=== PATIENT | female | born 1955 | race Caucasian/White ===

== ENCOUNTER → 2021-09-07 | Day surgery (SDC) | payer OTHER ==
[~2021-09-07] VITALS: Ht 172.7 cm; Wt 131.5 kg
[~2021-09-07] MED LIST: ACETAMINOPHEN500 M1 PO; ALLOPURINOL300 MG PO; BENICAR40 MG PO; COLACE100 MG PO; DYAZIDE PO; EFFEXOR XR150 MG PO; EFFEXOR-XR 75 M75 MG PO; K-TAB ER20 MEQ PO; LASIX20 MG PO; MOTRIN600 MG PO; OXY-IR 5MG5 MG PO; PERCOCET 5-3251 EACH PO; PLAVIX75 MG PO; PROTONIX 40MG T40 MG PO; SENNA S TABLET1 EACH PO; SYNTHROID200 MCG PO; VALSARTAN160 MG PO; VITAMIN D50000 UNIT PO; WELLBUTRIN SR100 MG PO; WELLBUTRIN XL150 MG PO; ZETIA10 M1 PO; ZOFRAN4 MG PO; [UNRECOGNIZED DRUG - OTHER] PO
[2021-09-07 10:20] LABS: BUN/CREAT RATIO (CALC) 24.1 RATIO; CREATININE 0.87 mg/dL (0.51-0.95); POTASSIUM 4.1 mmol/L (3.5-5.1)
--- NOTE | 2021-09-07 12:39 | NUR ---
VO DR PITTS RESUME PLAVIX ON Tuesday09/09/21
== END | disposition home or self-care (01) ==
LOC: FAS 09:27
PROVIDERS: Anesthesiology
DX: K43.6 Other and unspecified ventral hernia with obstruction, without gangrene (principal); I10 Essential (primary) hypertension; E03.9 Hypothyroidism, unspecified; E66.01 Morbid (severe) obesity due to excess calories; Z79.02 Long term (current) use of antithrombotics/antiplatelets; Z96.659 Presence of unspecified artificial knee joint; Z98.51 Tubal ligation status; Z87.891 Personal history of nicotine dependence; Z68.42 Body mass index [BMI] 45.0-49.9, adult; E78.5 Hyperlipidemia, unspecified
CPT/HCPCS: 36415; 80048; C1781; J0690; J1170; J1644; J2250; J2370; J2405; J2704; J2710; J3010; J7120

== ENCOUNTER 2021-11-03 14:21 | Emergency (ER) | payer OTHER ==
[2021-11-03 16:39] LABS: BASOPHIL 0.1 % (0-2); EOSINOPHIL 0 % (0-7); HCT 41.7 % (37.0-47.0); HGB 13.7 g/dl (12.5-16.0); MCH 30.4 pg (25.0-31.0); MCHC 32.9 g/dL (32.0-36.0); MCV 92.7 fL (78.0-100.0); MONOCYTE 5.3 % (0-12); MPV 11.7 fL (6.0-9.5); NEUTROPHIL 87.1 % (41-80); NRBC 0; PLT 175 K/uL (150-400); RDW 14.6 % (11.5-14.0); WBC 9.2 K/uL (4.0-10.5)
[2021-11-03 16:45] LABS: INR 1.03 (0.9-1.2); PROTHROMBIN TIME 12.9 SECONDS (11.8-13.4); PTT 36.4 SECONDS (24.4-34.7)
[2021-11-03 16:46] LABS: D-DIMER 0.49 ug/mLFEU (0.00-0.41)
[2021-11-03 16:56] LABS: IRON % SATURATION 6.1 %SAT (20-50)
[2021-11-03 17:16] LABS: LACTIC ACID 1.3 mmol/L (0.4-1.9)
[2021-11-03 17:24] LABS: ALBUMIN 3.5 g/dL (3.4-5.0); BILIRUBIN - TOTAL 0.3 mg/dL (0.2-1.0); BUN/CREAT RATIO (CALC) 18.1 RATIO; C-REACTIVE PROTEIN 16.5 mg/dL (<=0.90); CREATININE 1.93 mg/dL (0.51-0.95); GLOBULIN (CALCULATION) 4.1 g/dL; MAGNESIUM 2.3 mg/dL (1.8-2.4); POTASSIUM 4.4 mmol/L (3.5-5.1); TOTAL PROTEIN 7.6 g/dL (6.4-8.2)
[2021-11-03] MEDS ORDERED: G TUSSIN AC LI118 ML PO (21:18)
== END 2021-11-03 21:40 | disposition home or self-care (01) ==
LOC: FER 14:21
PROVIDERS: Emergency Medicine
DX: U07.1 COVID-19 (principal); J12.82 Pneumonia due to coronavirus disease 2019; N17.9 Acute kidney failure, unspecified; I10 Essential (primary) hypertension; Z23 Encounter for immunization
CPT/HCPCS: 36415; 36600; 71250; 80053; 82728; 82803; 83540; 83550; 83605; 83615; 83690; 83735; 83880; 84145; 84484; 85025; 85379; 85610; 85730; 86140; 93005; J7030; M0243; Q0244

== ENCOUNTER 2021-11-05 16:04 | Inpatient (IN) | payer OTHER ==
[~2021-11-05] VITALS: Ht 172.7 cm; Wt 141.9 kg
[~2021-11-05 16:04] MED LIST changes: +G TUSSIN AC LI118 ML PO
[2021-11-05 18:13] LABS: BASOPHIL 0 % (0-2); EOSINOPHIL 0 % (0-7); HCT 37.7 % (37.0-47.0); HGB 12.5 g/dl (12.5-16.0); LYMPHOCYTE 10.6 % (15-48); MCH 30.4 pg (25.0-31.0); MCHC 33.2 g/dL (32.0-36.0); MCV 91.7 fL (78.0-100.0); MPV 11.4 fL (6.0-9.5); NRBC 0; PLT 168 K/uL (150-400); RBC 4.11 M/uL (4.20-5.40); RDW 14.9 % (11.5-14.0); WBC 8.3 K/uL (4.0-10.5)
[2021-11-05 18:29] LABS: INR 1.05 (0.9-1.2); PROTHROMBIN TIME 13.1 SECONDS (11.8-13.4)
[2021-11-05 18:32] LABS: D-DIMER 1.19 ug/mLFEU (0.00-0.41)
[2021-11-05 18:40] LABS: LACTIC ACID 1.3 mmol/L (0.4-1.9)
[2021-11-05 18:43] LABS: ALBUMIN 2.8 g/dL (3.4-5.0); BILIRUBIN - TOTAL 0.3 mg/dL (0.2-1.0); BUN/CREAT RATIO (CALC) 36.1 RATIO; C-REACTIVE PROTEIN 11.7 mg/dL (<=0.90); CREATININE 1.22 mg/dL (0.51-0.95); GLOBULIN (CALCULATION) 3.3 g/dL; POTASSIUM 4.5 mmol/L (3.5-5.1); TOTAL PROTEIN 6.1 g/dL (6.4-8.2)
[2021-11-06 06:54] LABS: C-REACTIVE PROTEIN 6.5 mg/dL (<=0.90)
[2021-11-06 13:57] LABS: BUN/CREAT RATIO (CALC) 37.9 RATIO; CREATININE 1.03 mg/dL (0.51-0.95)
[2021-11-07 05:25] LABS: BASOPHIL 0.1 % (0-2); EOSINOPHIL 0 % (0-7); HGB 12.4 g/dl (12.5-16.0); LYMPHOCYTE 7.6 % (15-48); MCH 30.5 pg (25.0-31.0); MCHC 32.6 g/dL (32.0-36.0); MCV 93.4 fL (78.0-100.0); MONOCYTE 7.8 % (0-12); NEUTROPHIL 83.6 % (41-80); NRBC 0; PLT 221 K/uL (150-400); RBC 4.07 M/uL (4.20-5.40); WBC 12.9 K/uL (4.0-10.5)
[2021-11-07 05:42] LABS: BUN/CREAT RATIO (CALC) 39.8 RATIO; CREATININE 0.93 mg/dL (0.51-0.95); POTASSIUM 4.2 mmol/L (3.5-5.1)
[2021-11-08 05:19] LABS: HCT 33.7 % (37.0-47.0); MCH 30.4 pg (25.0-31.0); MCHC 32.6 g/dL (32.0-36.0); MCV 93.1 fL (78.0-100.0); MPV 11.1 fL (6.0-9.5); RBC 3.62 M/uL (4.20-5.40); RDW 14.9 % (11.5-14.0); WBC 8.6 K/uL (4.0-10.5)
[2021-11-08 05:49] LABS: BUN/CREAT RATIO (CALC) 41.7 RATIO; CREATININE 0.72 mg/dL (0.51-0.95); POTASSIUM 3.9 mmol/L (3.5-5.1)
[2021-11-08 08:24] LABS: FLU B NEGATIVE B (NEGATIVE B)
[2021-11-08 09:52] LABS: FT4 (FREE T4) 1.4 ng/dL (0.76-1.46)
[2021-11-09 06:23] LABS: HCT 28.7 % (37.0-47.0); HGB 9.3 g/dl (12.5-16.0); MCH 30.5 pg (25.0-31.0); MCHC 32.4 g/dL (32.0-36.0); MCV 94.1 fL (78.0-100.0); MPV 11.5 fL (6.0-9.5); RBC 3.05 M/uL (4.20-5.40); RDW 14.8 % (11.5-14.0); WBC 9.4 K/uL (4.0-10.5)
[2021-11-09 06:44] LABS: BUN/CREAT RATIO (CALC) 42.1 RATIO; CREATININE 0.76 mg/dL (0.51-0.95)
--- NOTE | 2021-11-09 09:00 | NUR ---
PT AM ABG WORSENING FROM PREVIOUS. PO2 40s THIS AM. PT VERY AGGITATED THROUGH THE NIGHT, PULLING BIPAP OFF AND HAD TO BE STARTED ON PRECEDEX. UPON ARRIVAL THIS AM, DR. FERREIRA ASSESSED PT AND LABS. THE DECISION WAS MADE TO INTUBATE. RT WAS AT BEDSIDE AND GLIDESCOPE WAS USED. 0856 3MG VERSED GIVEN IVP VIA FEMORAL CENTRAL LINE 0901 20MG ETOMIDATE AND 80MG SUCCINYLCHOLINE GIVEN 0903 PT WAS SUCCESSFULLY INTUBATED USING THE GLIDESCOPE WITH A 7.5CM ET TUBE AND IS 22CM AT THE LIP. PT CONTINUED TO GAG ON TUBE AND WAS RAISING ARMS TOWARD TUBE. RESTRAINTS WERE APPLIED. 0905 PROPOFOL GTT 10MCG STARTED. PROPOFOL WAS TITRATED AT INTERVALS OF 10MCG UNTIL WE REACHED THE MAX RATE OF 50MCG. PRECEDEX WAS ALSO TITRATED FROM 0.7MCG TO 1.0MCG AT THIS TIME. PT REMAINED AGGITATED. 0922 2MG VERSED IVP GIVEN VIA CENTRAL LINE. THEN DR. FERREIRA PUSHED 10ML PROPOFOL AT 0926. PT CALMED DOWN AT THIS TIME HOWEVER, BP BEGAN TO DROP. 60s/30s, HR IN THE 50s. LEVOPHED WAS STARTED AT 5MCG AND TITRATED TO 7MCG WHERE BP AUDELIA TO A DESIRABLE VALUE. LEVO TITRATED BACK TO 5MCG. FENTANYL GTT STARTED AT 0945 AT 25MCG AND TITRATTED TO 75MCG FOR COMFORT. ONCE PT CALMED DOWN AND APPEARED COMFORTABLE, XRAY WAS OBTAINED AND COMFIRMED PLACEMENT OF ET TUBE AND OG TUBE.
[2021-11-09 13:47] LABS: CHOLESTEROL 80 mg/dL (<200); HDL 20 mg/dL (40-60); LDL - DIRECT 44 mg/dL (<100); TRIGLYCERIDES 176 mg/dL (<150)
--- NOTE | 2021-11-09 15:11 | NUR ---
error noted in Nutrition Assessment: information documented for goal rate of 30cc/hr; actual recommendations are 25cc/hr. Information will be shared with KASHIF Alegre; hard copy will be placed in chart with correction identified and initials by YIMI
[2021-11-10 04:58] LABS: HCT 26.5 % (37.0-47.0); MCHC 32.8 g/dL (32.0-36.0); MCV 94.3 fL (78.0-100.0); MPV 11.1 fL (6.0-9.5); RBC 2.81 M/uL (4.20-5.40); RDW 14.8 % (11.5-14.0); WBC 13.9 K/uL (4.0-10.5)
[2021-11-10 05:00] LABS: HGB 8.7 g/dl (12.5-16.0)
[2021-11-10 05:15] LABS: BUN/CREAT RATIO (CALC) 33.3 RATIO; CREATININE 0.78 mg/dL (0.51-0.95); POTASSIUM 4.1 mmol/L (3.5-5.1)
--- NOTE | 2021-11-10 20:37 | NUR ---
CALLED [facility] AND GOT CONSENT TO TRANSFER PATIENT TO [facility] BY 2 RN.BED WAS AVAILABLE AND PATIEN TO BE FLOWN. GAVE REPORT TO PINO GALLAGHER RN AT [facility]. ALL INFORMATION AND QUESTIONS ANSWERED. NO FURTHER INFORMATION WAS NEEDED. CD AND PACKET WAS GIVEN TO [facility]IGHT [facility]W AND STAFF ASSISTED CREW WITH LOADING UP PATIENT. NOTHING FURTHER WAS NEEDED FROM THEM. BELONGINGS WERE GATHERED AND SON WAS NOTIFIED THAT PATIENT WAS ON HER WAY TO [facility] TO [facility]. SON CAME AND PICKED UP BELONGINGS.
== END 2021-11-10 16:50 | disposition other institution (70) | DRG 208 ==
LOC: FER 16:04 → FICU 11-06 01:26
PROVIDERS: Emergency Medicine; Hospitalist; ADMIT Hospitalist
PROC: 5A0945A Assistance with Respiratory Ventilation, 24-96 Consecutive Hours, High Flow/Velocity Cannula (ICD-10-PCS; principal; 2021-11-06)
PROC: 8E0ZXY6 Isolation (ICD-10-PCS; 2021-11-06)
PROC: XW033E5 Introduction of Remdesivir Anti-infective into Peripheral Vein, Percutaneous Approach, New Technology Group 5 (ICD-10-PCS; 2021-11-06)
PROC: XW0DXM6 Introduction of Baricitinib into Mouth and Pharynx, External Approach, New Technology Group 6 (ICD-10-PCS; 2021-11-06)
PROC: 5A1935Z Respiratory Ventilation, Less than 24 Consecutive Hours (ICD-10-PCS; 2021-11-09)
PROC: 0BH17EZ Insertion of Endotracheal Airway into Trachea, Via Natural or Artificial Opening (ICD-10-PCS; 2021-11-09)
DX: U07.1 COVID-19 (principal); J12.82 Pneumonia due to coronavirus disease 2019; I21.A1 Myocardial infarction type 2; J15.9 Unspecified bacterial pneumonia; J80 Acute respiratory distress syndrome; I42.9 Cardiomyopathy, unspecified; N17.9 Acute kidney failure, unspecified; I10 Essential (primary) hypertension; E03.9 Hypothyroidism, unspecified; I25.10 Atherosclerotic heart disease of native coronary artery without angina pectoris; K21.9 Gastro-esophageal reflux disease without esophagitis; E78.00 Pure hypercholesterolemia, unspecified; E86.9 Volume depletion, unspecified; Z85.3 Personal history of malignant neoplasm of breast; Z98.890 Other specified postprocedural states; Z79.02 Long term (current) use of antithrombotics/antiplatelets; Z79.899 Other long term (current) drug therapy; Z79.890 Hormone replacement therapy; Z90.89 Acquired absence of other organs
CPT/HCPCS: 36415; 36600; 71045; 71275; 80048; 80053; 80061; 82550; 82803; 82962; 83605; 84145; 84439; 84443; 84484; 85025; 85379; 85610; 86140; 87804; 87899; 93005; 94002; 94660; 96365; 96366; 96367; 96368; 96372; 96375; C9113; C9399; J0456; J0696; J1100; J1265; J1650; J2060; J2250; J2543; J2704; J2930; J3010; J3370; J7030; J7040; J7050; Q0244; Q9967; U0002